=== PATIENT | male | born 1970 | race Caucasian/White ===

== ENCOUNTER 2021-01-28 11:38 | Emergency (ER) | payer OTHER, SELFPAY ==
--- NOTE | ~2021-01-28 | XR_ITS ---
EXAMINATION: XR ribs RT 2V w CXR 2V EXAM DATE: 01/28/2021 14:04 INDICATION: Cough 1week, rt. posterior rib pain, lt. chest wall pain. TECHNIQUE: Frontal projection of the upper right ribs, frontal projection of the lower right ribs, ob lique projection of the right ribs, frontal and lateral chest x-ray(s) for interpretation. Comparison is made to prior examination from 06/06/2016. FINDINGS: There are no displaced acute right rib fractures identified. There is no soft tissue abno rmality seen. There are cholecystectomy clips. No confluent consolidation, pneumothorax or pleural e ffusion suspected. Cardiomediastinal silhouette is normal. IMPRESSION: Unremarkable chest x-ray, right rib exam. Reviewed, dictated and finalized at location B. EY ENGINEER
[2021-01-28 13:00] VITALS: BP 145/80; PULSE 80; RESP 18; TEMP 37.4; O2SAT 98
--- NOTE | 2021-01-28 13:51 | ED.URI ---
HPI - URI/Sore Throat General Chief Complaint: Upper Respiratory Infection Stated Complaint: head and nasal pressure,back/chest pain Time Seen by Provider: 01/28/21 13:43 Source: patient and RN notes reviewed Mode of arrival: ambulatory Limitations: no limitations History of Present Illness HPI Narrative: Patient presents today complaining of sinus pressure x1 week. Yesterday he developed sore throat, postnasal drip, nonproductive cough with left-sided chest wall pain. He also states that he coughs so hard that it exacerbates his chronic low back pain. States that he has developed some right posterior rib pain as well due to severe coughing episodes. He has tried NyQuil, Mucinex, and nasal spray without relief. MD elicited complaint: cough and sore throat Related Data Allergies Allergy/AdvReac Type Severity Reaction Status Date / Time Penicillins Allergy Unknown Other Verified 01/28/21 13:22 Review of Systems Review of Systems: CONSTITUTIONAL: Denies body aches, fever, chills, or sweats. EYES: Denies visual changes, redness, or discharge. ENT: Denies rhinorrhea, or otalgia.+ Sinus congestion and pressure, sore throat, postnasal drip CARDIOVASCULAR: Denies chest pain, palpitations, or edema. RESPIRATORY: Denies dyspnea.+ Cough, chest wall pain GASTROINTESTINAL: Denies abdominal pain, nausea, vomiting, or diarrhea. GENITOURINARY: Denies dysuria or hematuria. SKIN: Denies rash, itching, or wounds. MUSCULOSKELETAL: Denies joint pain, or myalgia.+ Low back pain, rib pain NEUROLOGIC: Denies headache, numbness, tingling, or weakness. PSYCH: Denies depression or anxiety. [facility] Family History Family History Father Patient's father is in good health Malignant neoplasm of prostate Family history of heart disease in male family member before age 55 Social History Social History Smoking status: Never smoker Second hand tobacco smoke exposure: No Alcohol intake: current Comments At time of signature, I have reviewed and agree with nursing past medical, surgical, social and family history unless otherwise noted. Please see nursing chart for further information. There is no relevant family history pertinent to the presenting complaint Exam Narrative: GENERAL: Ill-appearing, well-nourished, and in no moderate pain distress. HEAD: Normocephalic, atraumatic. EYES: EOMI. No redness or drainage. Conjunctivae normal. ENT: Mucous membranes pink and moist. Nares congested. No rhinorrhea. TMs normal bilaterally. Throat normal. Uvula midline. NECK: Normal AROM. Supple. No lymphadenopathy. CHEST: No respiratory distress. Clear to auscultation. Mild tenderness along the left sternal border with palpation. Right lower posterior rib tenderness with palpation. No crepitus or deformity noted. HEART: Regular rate and rhythm. No murmur appreciated. Normal peripheral pulses. MUSCULOSKELETAL: No bony tenderness. Left lower lumbar paraspinal muscle tenderness. EXTREMITIES: Normal range of motion. No edema. SKIN: Warm, dry, no rash. Capillary refill normal. Normal skin turgor. NEURO: No focal deficits. Alert and oriented x3. Gait steady. PSYCH: Normal affect. No signs of depression or anxiety. Course Vital Signs Vital signs: Vital Signs Temperature 99.4 F 01/28/21 13:00 Pulse Rate 80 01/28/21 13:00 Respiratory Rate 18 01/28/21 13:00 Blood Pressure 145/80 H 01/28/21 13:00 Pulse Oximetry 98 01/28/21 13:00 Temperature 99.4 F 01/28/21 13:00 Pulse Rate 80 01/28/21 13:00 Respiratory Rate 18 01/28/21 13:00 Blood Pressure 145/80 H 01/28/21 13:00 Pulse Oximetry 98 01/28/21 13:00 Reviewed. Pt has been instructed to follow up with his PCP regarding his elevated blood pressure today. MDM - URI/Sore Throat Differential Diagnosis Differential diagnosis: Likely upper respiratory infect
== END 2021-01-28 14:30 | disposition home or self-care (01) ==
PROVIDERS: Emergency Provider Nurse Practitioner
DX: M94.0 Chondrocostal junction syndrome [Tietze] (principal); J06.9 Acute upper respiratory infection, unspecified; S29.011A Strain of muscle and tendon of front wall of thorax, initial encounter; S21.109A Unspecified open wound of unspecified front wall of thorax without penetration into thoracic cavity, initial encounter; X58.XXXA Exposure to other specified factors, initial encounter; Z20.822 Contact with and (suspected) exposure to COVID-19
CPT/HCPCS: 71046; 71100; 87426; 99213; C9803; G0463

== ENCOUNTER 2024-03-04 16:50 | Emergency (ER) | payer OTHER, SELFPAY ==
--- NOTE | ~2024-03-04 | CT_ITS ---
EXAMINATION: CT abdomen pelvis w con DATE: 03/04/2024 20:55 INDICATION: Abdominal pain, vomiting TECHNIQUE: Computed tomography (CT) of the abdomen and pelvis was performed with 100 CC Omnipaque 350 intravenous contrast. Automated exposure control and iterative reconstruction technique were employe d. Exam dose: 1510.39 mGy-cm total exam DLP. COMPARISON: 05/16/2017 CT abdomen pelvis FINDINGS: Mild bilateral dependent lower lobe atelectasis. Normal heart size. No pericardial or pleural effusion. Diffuse hepatic steatosis. No hepatic space-occupying mass lesion. Status post cholecystectomy. No bile duct or pancreatic duct dilatation. No pancreatic mass lesion or calcification. There is fatty infiltration of the pancreas. Spleen measures 14 cm sagittally consistent with splenomegaly. Normal morphology of the adrenal glands. 7 mm probable cyst of the lower pole of the right kidney the kidneys are otherwise unremarkable. No u rinary tract calculus or hydroureteronephrosis. The urinary bladder and prostate gland and seminal ve sicles are unremarkable. There is atherosclerotic calcification but normal caliber of the abdominal aorta. No intraperitoneal or retroperitoneal or pelvic mass lesion or adenopathy or ascites. The appendix is not identified. There is fluid distention of much of the small bowel but no abnormal small bowel dilatation or small or large bowel wall thickening, pneumatosis or intraperitoneal free a ir. No suspicious osteolytic or osteoblastic lesions. IMPRESSION: Nondilated fluid containing small bowel which may be due to enteritis; no bowel obstruct ion, bowel wall thickening or intraperitoneal free air The appendix is apparently surgically absent Hepatic steatosis Status post cholecystectomy 7 mm probable cyst of right kidney Reviewed, dictated and finalized at Location [facility]. Reviewed, dictated and finalized at location A. PROOFER IMPRESSION: Nondilated fluid containing small bowel which may be due to enteri tis; no bowel obstruction, bowel wall thickening or intraperitoneal free air The appendix is apparently surgically absent Hepatic steatosis Status post cholecystectomy 7 mm probable cyst of right kidney
[2024-03-04 16:53] VITALS: BP 136/74; PULSE 98; RESP 18; TEMP 36.9; O2SAT 99
[2024-03-04 18:26] LABS: Hematocrit 47.8 % (42.0-52.0); Hemoglobin 16.3 g/dL (14.0-18.0); Mean Corpuscular HGB Conc 34.1 g/dl (32-36); Mean Corpuscular Hemoglobin 30.8 pg (26-34); Mean Corpuscular Volume 90.4 fl (80-100); Mean Platelet Volume 10.8 fl (7.4-10.4); Platelet Count Result 217 k/mm3 (150-375); Red Blood Count 5.29 M/mm3 (4.6-6.20); Red Cell Distribution Width 12.3 % (11.5-14.5); White Blood Count 15.1 K/mm3 (4.5-10.0)
[2024-03-04] MEDS: SODIUM CHLORIDE 0.9% IV 1,000 ML 999 ML IV CONT (18:36)
[2024-03-04] MEDS: ONDANSETRON INJ 4 MG/2 ML VIAL IV PUSH (18:37)
[2024-03-04] MEDS: FAMOTIDINE 20 MG/2 ML VIAL IV PUSH (18:37)
[2024-03-04 18:39] LABS: Alanine Aminotransferase 43 U/L (6-50); Albumin Level 4.3 g/dL (3.5-5.1); Alkaline Phosphatase 58 U/L (38-126); Anion Gap 10 mmol/L (4-12); Aspartate Amino Transferase 37 U/L (17-59); Bilirubin,Total 0.9 mg/dL (0.2-1.3); Blood Urea Nitrogen 21 mg/dL (9-20); Calcium 8.7 mg/dL (8.4-10.2); Carbon Dioxide 24 mmol/L (22-30); Chloride 105 mmol/L (98-107); Estimated CRCL calculation 84 ml/min; Estimated Glomerular Filt Rate > 60; Glucose 191 mg/dL (65-110); Lipase 28 U/L (23-300); Potassium 4.1 mmol/L (3.4-5.0); Sodium 139 mmol/L (137-145)
[2024-03-04 18:52] LABS: Band Neutrophils Percent 3 % (0-6); Basophils Absolute Manual 0.15 K/mm3 (0.0-0.1); Basophils Percent Manual 1 % (0-1); Metamyelocytes Percent 1 %; Monocytes Absolute Manual 0.15 K/mm3 (0.1-0.90); Monocytes Percent Manual 1 % (3-9); Neutrophils Absolute Manual 14.04 K/mm3 (1.3-6.7); Neutrophils Percent Manual 90 % (46-73); Platelet Estimate Adequate (Adequate); Total Cells Counted 100
[2024-03-04 18:53] LABS: Atypical Lymphocytes Present; Giant Platelets Present; Platelet Clumps Present; Schistocytes None Seen
[2024-03-04 18:54] VITALS: BP 139/77; PULSE 89; RESP 18; O2SAT 98
--- NOTE | 2024-03-04 19:04 | ECG_ITS ---
Test Date: 2024-03-04 19:44:48 Measurements Intervals [place] Rate: 94 P: 46 DC: 138 QRS: 44 QRSD: 107 T: 49 QT: 351 QTc: 440 Interpretive Statements SINUS RHYTHM NONSPECIFIC T-WAVE ABNORMALITY No previous ECG available for comparison Electronically Signed On 03-04-2024 21:04:46 TRAFFIC COUNTER by Roland Acharya M.D.
--- NOTE | 2024-03-04 19:05 | ED.NAVMDI ---
HPI - Nausea/Vomiting/Diarrhea General Chief complaint: Nausea/Vomiting/Diarrhea Stated complaint: N/V/D Time Seen by Provider: 03/04/24 17:50 Source: patient Mode of arrival: ambulatory Limitations: no limitations History of Present Illness HPI Narrative: This is a 53-year-old male that presents to the emergency department for nausea and vomiting. Ongoing since earlier this morning. Also reports epigastric abdominal pain/chest pain. Reports some diarrhea. Denies fevers. Related Data Allergies Allergy/AdvReac Type Severity Reaction Status Date / Time Penicillins Allergy Unknown Other Verified 01/28/21 13:22 Review of Systems Review of Systems: CONSTITUTIONAL: Denies fever CARDIOVASCULAR: Reports chest pain RESPIRATORY: Denies dyspnea. GASTROINTESTINAL: Reports abdominal pain, nausea, vomiting, and diarrhea. GENITOURINARY: Denies dysuria All systems reviewed & are unremarkable except as noted in HPI and below PMFSH Past Medical History Medical History (Updated 03/04/24 @ 22:15 by Leonora Merritt PA-C) History of hypertension Family History Family History Father Patient's father is in good health Malignant neoplasm of prostate Family history of heart disease in male family member before age 55 Social History Social History Smoking status: Never smoker Second hand tobacco smoke exposure: No Alcohol intake: current Exam Narrative: GENERAL: Well-appearing, well-nourished, and in no acute distress. HEAD: Normocephalic, atraumatic. EYES: EOMI. CHEST: Clear to auscultation. No respiratory distress. No wheezes rales or rhonchi HEART: Regular rate and rhythm. No murmur heard. Normal peripheral pulses. ABDOMEN: Soft, nondistended, normal active bowel sounds. Tender to palpation in the epigastrium, without guarding EXTREMITIES: Normal range of motion. No edema. SKIN: Warm, dry, no rash. NEURO: No focal deficits. Alert and oriented x3. PSYCH: Normal mood and affect Course Course Emergency Course: Patient updated on workup and agrees with plan of care Vital Signs Vital signs: Vital Signs Temperature 98.5 F 03/04/24 16:53 Pulse Rate 98 03/04/24 16:53 Respiratory Rate 18 03/04/24 16:53 Blood Pressure 136/74 03/04/24 16:53 Pulse Oximetry 99 03/04/24 16:53 Oxygen Delivery Room Air 03/04/24 16:53 Temperature 98.5 F 03/04/24 16:53 Pulse Rate 89 03/04/24 18:54 Respiratory Rate 18 03/04/24 18:54 Blood Pressure 139/77 03/04/24 18:54 Pulse Oximetry 98 03/04/24 18:54 Oxygen Delivery Room Air 03/04/24 16:53 MDM - Nausea/Vomiting/Diarrhea MDM Narrative Medical decision making narrative: patient presents the emergency department for abdominal pain, nausea and vomiting. He is afebrile and nontoxic appearing. His vitals are stable. CBC with leukocytosis to 15.1. Metabolic panel without concerning findings. Lipase is normal. CT abdomen pelvis shows findings of enteritis. Patient hydrated given antiemetic in the ER with improvement. Tolerating p.o. intake. He was updated on his workup and agrees with plan of care. He is to follow up with her provider. He was given warnings to return to the ER Differential Diagnosis Differential diagnosis: Likely food poisoning, gastroenteritis, dehydration and other ( biliary colic, pancreatitis) Lab Data Attestation: I reviewed the patient's lab results. 03/04/24 18:12 03/04/24 18:12 Labs: Lab Results 03/04/24 Range/Units 18:12 WBC 15.1 H (4.5-10.0) K/mm3 RBC 5.29 (4.6-6.20) M/mm3 Hgb 16.3 (14.0-18.0) g/dL Hct 47.8 (42.0-52.0) % MCV 90.4 (80-100) fl MCH 30.8 (26-34) pg MCHC 34.1 (32-36) g/dl RDW 12.3 (11.5-14.5) % Plt Count 217 (150-375) k/mm3 MPV 10.8 H (7.4-10.4) fl Immature Gran % (Auto) Not Reportable Neut % (Auto) Not Reportable Lymph % (Auto) Not Reportable [place] % (Auto) Not Reportable Eos % (Auto) Not Reportable Baso % (Auto) Not Reportable Lymph # (Auto) Not Reportable [place] # (Auto) Not Reportable Eos # (Auto) Not Reportable Baso # (Auto) Not Reportable Abs Immat Gran (auto) Not Reportable Absolute Neuts (auto) Not Reportable Absolute Nucleated RBC Not Reportable Total Counted 100 Neutrophils % (Manual) 90 H (46-73) % Band Neutrophils % 3 (0-6) % Lymphocytes % (Manual) 4.0 L (18-44) % Monocytes % (Manual) 1 L (3-9) % Basophils % (Manual) 1 (0-1) % Metamyelocytes % 1 % Nucleated RBC % Not Reportable Abs Neuts (Manual) 14.04 H (1.3-6.7) K/mm3 Abs Lymphs (Manual) 0.60 L (1.1-4.5) K/mm3 Abs Monocytes (Manual) 0.15 (0.1-0.90) K/mm3 Abs Basophils (Manual) 0.15 H (0.0-0.1) K/mm3 Atypical Lymphocytes Present Platelet Estimate Adequate (Adequate) Clumped Platelets Present Giant Platelets Present Schistocytes None seen Sodium 139 (137-145) mmol/L Potassium 4.1 (3.4-5.0) mmol/L Chloride 105 (98-107) mmol/L Carbon Dioxide 24 (22-30) mmol/L Anion Gap 10 (4-12) mmol/L BUN 21 H (9-20) mg/dL Creatinine 1.10 (0.7-1.3) mg/dL Estim Creat Clear Calc 84 ml/min Estimated GFR > 60 (59 - ) Glucose 191 H (65-110) mg/dL Calcium 8.7 (8.4-10.2) mg/dL Total Bilirubin 0.9 (0.2-1.3) mg/dL AST 37 (17-59) U/L ALT 43 (6-50) U/L Alkaline Phosphatase 58 (38-126) U/L Troponin I < 0.012 (0.000-0.034) ng/mL Total Protein 8.0 (6.3-8.2) g/dL Albumin 4.3 (3.5-5.1) g/dL Lipase 28 (23-300) U/L Imaging Data Radiologist's impression: ITS Impressions Abdomen/Pelvis CT 03/04/24 20:59 IMPRESSION: Nondilated fluid containing small bowel which may be due to enteritis; no bowel obstruction, bowel wall thickening or intraperitoneal free air The appendix is apparently surgically absent Hepatic steatosis Status post cholecystectomy 7 mm probable cyst of right kidney ECG Data EKG #1: ECG completion date: 03/04/24 EKG Interpretation: normal rate, sinus rhythm, no ST changes and normal QT Critical Care Time Critical Care Time Critical Care Time: No Discharge Plan Discharge Clinical Impression: Gastroenteritis Patient Disposition: Home, Self-Care Condition: Improved Instructions: Gastroenteritis (ED) Additional Instructions: Return to the ER if you experience fever, worsening abdominal pain with nausea and vomiting, you are unable to keep down liquids or solids, blood in the stool, pain or burning with urination, blood in the urine or any other symptoms that are concerning to you Small, frequent meals. [place] diet. Remain well hydrated. Ondansetron as needed for nausea Follow up with primary care doctor Patient Language: Urdu Prescriptions: New ondansetron 4 mg tablet,disintegrating 4 mg PO Q8H PRN (Reason: nausea and vomiting) Qty: 14 0RF No Action cyclobenzaprine 10 mg tablet 10 mg PO TID PRN (Reason: muscle spasm) Qty: 20 0RF prednisone 50 mg tablet 50 mg PO DAILY 5 Days Qty: 5 0RF benzonatate 200 mg capsule 200 mg PO TID PRN (Reason: cough) Qty: 20 0RF Follow-up/Referrals: PHYSICIAN,VENETIAN BLIND ASSEMBLER [Primary Care Provider] - Ankit Lara MD [Physician] -
[2024-03-04 19:30] LABS: Troponin I < 0.012 ng/mL (0.000-0.034)
[2024-03-04] MEDS: ACETAMINOPHEN 500 MG TABLET 1000 MG PO (21:32)
[2024-03-04 22:43] VITALS: BP 127/73; PULSE 95; RESP 20; TEMP 38; O2SAT 100
== END 2024-03-04 22:55 | disposition home or self-care (01) ==
PROVIDERS: Emergency Provider Physician Assistant
DX: K52.9 Noninfective gastroenteritis and colitis, unspecified (principal); I10 Essential (primary) hypertension
CPT/HCPCS: 36415; 74177; 80053; 83690; 84484; 85025; 93005; 96361; 96374; 96375; 99284; A9270; J2405; J7030; Q9967

== ENCOUNTER 2024-07-10 22:03 | Emergency (ER) | payer OTHER, SELFPAY ==
--- NOTE | ~2024-07-10 | XR_ITS ---
EXAMINATION: XR chest 2V Exam Date/Time: 07/10/2024 22:41 CDT HISTORY: chest/abd pain R sided Comparison: 01/28/2021, 06/06/2016. RESULT: Lines, tubes, and devices: None. Lungs and pleura: Ill-defined subsegmental bibasilar opacities, likely represent scar/atelectasis, l ungs otherwise clear. Cardiomediastinal silhouette: Stable. Other: No acute osseous or upper abdominal finding. IMPRESSION: No acute cardiopulmonary process. Reviewed, dictated and finalized at location K.
--- NOTE | ~2024-07-10 | CT_ITS ---
EXAMINATION: CTA chest PE abdomen pel DATE: 07/10/2024 23:50 INDICATION: cp, sob, RUQ/R flank/rib pain, +dimer TECHNIQUE: Computed tomography angiography (CTA) of the chest was performed with 100 mL Omnipaque-350 intravenous contrast timed to evaluate the pulmonary arteries, followed by portal venous phase imagi ng of the abdomen and pelvis. Coronal maximum intensity projection 3D-reconstructions were created by the technologist. The dose-length product (DLP) was 2607.19 mGy-cm. Automated exposure control and i terative reconstruction technique were employed. COMPARISON: X-ray chest, same date; CT abdomen pelvis 03/04/2024. FINDINGS: CHEST: Lung parenchyma and airways: Clear. Pleura: Unremarkable. Thoracic inlet, axillae and chest wall: No thyroid or soft tissue mass. Mild symmetric gynecomastia. Thoracic aorta: No significant dilation. No dissection. Mediastinum: Normal. Heart and pericardium: Normal. Coronary artery calcifications: Absent. Thoracic bones: No acute osseous finding. Pulmonary arteries: Study quality: Somewhat limited by beam hardening from arm down positioning and b gregory habitus, overall diagnostic. No pulmonary emboli detected. ABDOMEN/PELVIS: Liver: Enlarged. Diffusely low-density parenchyma. Biliary/Gallbladder: Gallbladder is absent. No bile duct dilation. Pancreas: Fatty infiltration. Spleen: Enlarged. Adrenals:No mass. Kidneys: No suspicious mass, obstructing stone, or hydronephrosis. Simple right lower pole cyst. GI tract: No small or large bowel dilation. The appendix is not confidently visualized Mesentery/Peritoneum: No ascites, mass, or free air. Retroperitoneum: No mass. Mild atherosclerotic calcifications of intra-abdominal arterial vessels. Pelvis: Pelvic organs are within normal limits. Soft Tissues: Small uncomplicated fat-containing umbilical and right inguinal hernias. Abdominopelvic bones: No acute osseous finding. IMPRESSION: No CT evidence of acute pulmonary embolus. No acute process detected in the chest. Hepatosplenomegaly with hepatic steatosis. Otherwise unremarkable CT abdomen and pelvis findings. Reviewed, dictated and finalized at location K.
--- NOTE | ~2024-07-10 | CT_ITS ---
EXAMINATION: CT brain wo con DATE: 07/10/2024 23:44 INDICATION: dizziness, disorientation . TECHNIQUE: Computed tomography (CT) of the head was performed without intravenous contrast. The mA wa s adjusted according to patient size. Iterative reconstruction technique was employed. The dose-lengt h product was 681.00 mGy-cm. COMPARISON: None. FINDINGS: No acute intracranial hemorrhage or extra-axial fluid collection. No hydrocephalus, mass, or herniation. No acute ischemic infarct. Unremarkable dural venous sinus attenuation. No acute osseous abnormality. Bilateral frontal and ethmoid mucosal thickening, the remaining aerated spaces are clear. IMPRESSION: No acute intracranial process. Reviewed, dictated and finalized at location K.
--- OUTSIDE RECORDS SUMMARY | 2024-07-10 22:06 | XMS_ITS | Encounter Summary ---
Author Organization [facility] Address [address] [place] [id number] Care Team Providers Care Cell Attendant Name Role Phone None, Provider MD Primary Care Provider Unavaila ble None, Provider Primary Care Provider Unavaila ble Encounter Details Date Type Department Care Team (Late st Contact Info) Description 07/15/2023 Cursogram Message [facility] Business Office [address] [place] [id number] [place], [facility] Provider Action Needed Social History Tobacco Use Types Packs/Day Years Used Date Smoking Tobacco: Never Passive Smoke Exposure: Never Smokeless Tobacco: Never Alcohol Use Standard Drinks/Week Comments Not Currently 0 (1 standard drink = 0.6 oz pur e alcohol) PHQ-2 Answer Date Recorded Patient Health Questionnaire-2 Score 0 06/09/2023 Sex and Gender Information Value Date Recorded Sex Assigned at Not on file Legal Sex Male 12:06 PM PRINCIPAL NETWORK ENGINEER Gender Identity Male 04/17/2021 9:15 AM PRINCIPAL NETWORK ENGINEER Sexual Orientation Straight 04/17/2021 9: 15 AM PRINCIPAL NETWORK ENGINEER documented as of this encounter Plan of Treatment Not on file documented as of this encounter Visit Diagnoses Not on filedocumented in this encounter Additional Health Concerns Assessment Noted Time PHQ-9 Depression Total Score: 0 04/20/19 22 10:02 AM PRINCIPAL NETWORK ENGINEER documented as of this encounter Care Teams Cell Attendant Relationship Specialty Start Date End Date None, Provider, MD PCP - General UNKNOWN PHYSICIAN SPECIALTY 05/21/24 None, Provider, MD PCP - General UNKNOWN PHYSICIAN SPECIALTY 05/13/23 documented as of this encounter
--- OUTSIDE RECORDS SUMMARY | 2024-07-10 22:06 | XMS_ITS | Clinical Summary ---
Author Organization [facility] Address [address] [place] [address] Care Team Providers Care Apple Checker Name Role Phone None, Provider MD Primary Care Provider Unavaila ble Allergies Active Allergy Reactions Criticality Noted Date Comments Penicillins Unknown 04/20/2021 Medications omeprazole (PRILOSEC) 20 MG capsule Take 1 capsule (20 mg total) by mouth daily. Active hydroCHLOROthia zide (HYDRODIURIL) 25 MG tablet Take 1 tablet (25 mg total) by mouth every morning. 90 tablet 1 05/20/2023 Active predniSONE (DELTASONE) 20 MG tabletIndicatio ns:Acute non-recurrent frontal sinusitis,Chest wall pain One pill twice daily 5 days then one pill daily 2 day 12 tablet 06/09/2023 Active Active Problems Problem Noted Date Diagnosed Date Elevated BP without diagnosis of hypertension Assessment & Plan (05/20/2023 2:26 PM SCHOOL ADMINISTRATOR): He does not have a formal diagnosis of hypertension. Recommend hydrochlorothiazide to see if he get some symptom benefit with lower extremity edema and he may have some blood pressure effect as well. Dizziness 02/25/2023 Assessment & Plan (02/25/2023 10:00 AM SCHOOL ADMINISTRATOR): echo Bilateral lower extremity edema 01/03/2023 Assessment & Plan (05/20/2023 2:25 PM SCHOOL ADMINISTRATOR): He has some mild lower extremity edema and I have offered him hydrochlorothiazide as a diuretic given his blood pressure was elevated in the office today. Assessment & Plan (02/25/2023 10:00 AM SCHOOL ADMINISTRATOR): Venous doppler reassuring Arterial studies neg Reports numbness tingling in right lower extremity Sent note to PCP for further guidance Assessment & Plan (01/03/2023 1:02 PM CDT): Discussed getting an echo, but will await abdominal ultrasound. Bradycardia 01/03/2023 Assessment & Plan (02/25/2023 9:59 AM SCHOOL ADMINISTRATOR): EM reassuring Assessment & Plan (01/03/2023 1:03 PM CDT): Will check a Holter monitor. Chest pain in adult 01/03/2023 Assessment & Plan (05/20/2023 2:24 PM SCHOOL ADMINISTRATOR): He continues to have chest pain despite a normal stress test. I offered a CTA coronary for more definitive evaluation regarding his coronaries and for restratification with a coronary calcium score. Assessment & Plan (03/01/2023 9:15 AM SCHOOL ADMINISTRATOR): Stress echo Assessment & Plan (01/03/2023 1:03 PM CDT): Discussed exercise stress testing. Hematochezia 12/17/2022 Overview (12/17/2022): Added automatically from request for surgery [id number] Epigastric pain 12/17/2022 Overview (12/17/2022): Added automatically from request for surgery [id number] Chronic heartburn 12/17/2022 Overview (12/17/2022): Added automatically from request for surgery [id number] Irregular bowel habits 12/17/2022 Overview (12/17/2022): Added automatically from request for surgery [id number] Primary osteoarthritis of right knee 05/05/2021 Assessment & Plan (05/05/2021 7:36 PM SCHOOL ADMINISTRATOR): We discussed the risks, benefits and alternatives. The only thing proven to slow the progression of osteoarthritis is weight loss. Every pound lost relieves 4 to 6 pounds of stress across the knee. We discussed unloading braces. Formal physical therapy to help with flexibility, mobility and strength. We discussed TENS units. Nonsteroidal anti-inflammatories as well as Tylenol and pain medication and their side effects. We discussed steroid versus Visco supplement injection. We discussed eventual total knee arthroplasty. Patient has failed physical therapy, nonsteroidal anti-inflammatories, bracing and a steroid shot. Recommend MR arthrogram for further evaluation. Certainly not [id number] I would be surprised not to find a medial meniscal tear though. BMI 36.0-36.9,adult 05/05/2021 Assessment & Plan (05/20/2023 2:27 PM SCHOOL ADMINISTRATOR): He is obese with a Body mass index is 36.03 kg/m . He was educated on lifestyle modifications including diet and exercise. Assessment & Plan (05/05/2021 7:36 PM SCHOOL ADMINISTRATOR): We discussed the adverse effects of weight on osteoarthritis of the knee. For every 1 pound loss, 4 to 6 pounds of stress is relieved from the knee. We discussed low carbohydrate diet to help with weight loss. 80% of weight loss is through diet. Immunizations Immunization Administration Dates Next Due Influenza Adult (Generic) 02/19/2021 Family History Medical History Relation Comments Colon polyps Father Prostate Cancer Father Arthritis Mother Colon polyps Mother Relation Status Comments Father Alive Mother Alive Social History Tobacco Use Types Packs/Day Years [...] on file Legal Sex Male 12:06 PM SCHOOL ADMINISTRATOR Gender Identity Male 04/17/2021 9:15 AM SCHOOL ADMINISTRATOR Sexual Orientation Straight 04/17/2021 9: 15 AM SCHOOL ADMINISTRATOR Last Filed Vital Signs Vital Sign Reading Time Taken Comments Blood Pressure 123/79 06/09/2023 2:08 PM CDT Pulse 66 06/09/2023 2:08 PM CDT Temperature 36.9 C (98.5 F) 06/09/2023 2:08 PM CDT Respiratory Rate 20 06/09/2023 2:08 PM CDT Oxygen Saturation 98% 06/09/2023 2:08 PM CDT Inhaled Oxygen Concentration - - Weight 108.9 kg (240 lb) 06/09/2023 2:08 PM CDT Height 175.3 cm (5' 9 ) 06/09/2023 2:08 PM CDT Body Mass Index 35.44 06/09/2023 2:08 PM CDT Plan of Treatment Health Maintenance Due Date Last Done Comments Hepatitis C 1988 DTaP, Tdap and Td Vaccines ( 1 - Tdap) 1989 Hepatitis B Vaccines (1 of 3 - 19+ 3-dose series) 1989 Pneumococcal Vaccine: 50+ Years (1 of 1 - PCV) 2020 Zoster Vaccines (1 of 2) 2020 Annual Physical 04/20/2022 04/20/2021 COVID-19 Vaccine (4 - 2023-2 5 season) 2023 03/09/2021, 06/22/2020, 05/27/2020 PHQ-2 (Physician [place]) 03/14/2024 06/09/2023 Colorectal Cancer Screening Colonoscopy (10 Years) 02/11/2033 02/11/2023 Meningococcal B Vaccine Aged Out No l onger eligible based on patient's age to complete this topic Meningococcal Vaccine Aged Out No leanna becki eligible based on patient's age to complete this topic RSV Immunizations Under 20 Months Aged Out No longer eligible b ased on patient's age to complete this topic Insurance [facility] [place] [id number] Care Teams Apple Checker Relationship Specialty Start Date End Date None, Provider, PCP - General UNKNOWN PHYSICIAN SPECIALTY 05/21/24
--- OUTSIDE RECORDS SUMMARY | 2024-07-10 22:06 | XMS_ITS | Encounter Summary ---
Author Organization [facility] Address [address] [place] [id number] Care Team Providers Care Playback Operator Name Role Phone None, Provider Primary Care Provider Unavaila ble None, Provider Primary Care Provider Unavaila ble Encounter Details Date Type Department Care Team (Late st Contact Info) Description 11/23/2023 Virtualtwo Message [facility] Patient Accounts [address], [place] [id number] [facility] Action Needed Social History Tobacco Use [...] on file Legal Sex Male 12:06 PM BLADE WORKER Gender Identity Male 04/17/2021 9:15 AM BLADE WORKER Sexual Orientation Straight 04/17/2021 9: 15 AM BLADE WORKER documented as of this encounter Plan of Treatment Not on file documented as of this encounter Visit Diagnoses Not on filedocumented in this encounter Additional Health Concerns Assessment Noted Time PHQ-9 Depression Total Score: 0 04/20/19 22 10:02 AM BLADE WORKER documented as of this encounter Care Teams Playback Operator Relationship Specialty Start Date End Date None, Provider, MD PCP - General UNKNOWN PHYSICIAN SPECIALTY 05/21/24 None, Provider, MD PCP - General UNKNOWN PHYSICIAN SPECIALTY 05/13/23 documented as of this encounter
--- OUTSIDE RECORDS SUMMARY | 2024-07-10 22:06 | XMS_ITS | Clinical Summary ---
Author Organization [facility] Address [address] [place] [address] Care Team Providers Care Fine Craft Artist Name Role Phone Unavailable Primary Care Provider Unavailabl e Source Comments [facility],non-owned Affiliates and Associated Physician Practices is amultiple site organization consisting of ambulatory clinics and hospital sitesin [place], [place], [place] and [place]. This disclosure is being madepursuant to the Care Everywhere program and may not contain all information available regarding this patient. 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 Gender Identity Not on file Sexual Orientation Not on file Plan of Treatment Health Maintenance Due Date Last Done Comments COLOGUARD (AGES 45-75) - COL ON CA SCREENING 1970 COLON MONITORING 1970 COLONOSCOPY - COLON CA SCREENING 1970 CT COLONOGRAPHY - COLON CA SCREENING 1970 Colorectal Cancer Screening 1970 FIT - COLON CA SCREENING 1970 FLEX SIG - COLON CA SCREENING 1970 LIPID TESTING 1970 HIV SCREENING 1985 HEPATITIS C SCREENING 09/02/1988 DTAP/TDAP/TD VACCINES (1 - Tdap) 1989 HEPATITIS B VACCINE (1 of 3 - 19+ 3-dose series) 1989 PNEUMOCOCCAL VACCINE 50+ (1 of 1 - PCV) 2020 ZOSTER VACCINE (1 of 2) 2020 COVID-19 VACCINE (1 - 2023-2 5 season) 2023 DEPRESSION SCREENING 03/14/2024 INFLUENZA VACCINE (Season Ended) 2024 HIB VACCINE Aged Out No longer eligi ble based on patient's age to complete this topic HPV VACCINE Aged Out No longer eligi ble based on patient's age to complete this topic MENINGOCOCCAL (Group B) VACC INE SHARED DECISION-MAKING Aged Out No longer eligibl e based on patient's age to complete this topic MENINGOCOCCAL GROUPS A/C/Y/W VACCINE Aged Out No longer eligible b ased on patient's age to complete this topic
[2024-07-10 22:13] VITALS: BP 182/97; PULSE 89; RESP 18; TEMP 36.9
--- NOTE | 2024-07-10 22:21 | ECG_ITS ---
Test Date: 2024-07-10 22:34:27 Measurements Intervals [place] Rate: 88 P: 53 [place]: 137 QRS: 32 QRSD: 105 T: 68 QT: 363 QTc: 439 Interpretive Statements SINUS RHYTHM MINIMAL Q WAVES- INFERIOR LEADS BASELINE WANDER- V4 BORDERLINE ECG Compared to ECG 03/04/2024 19:44:48 No significant changes Electronically Signed On 07-11-2024 06:04:46 CDT by Good Martin D.O.
--- NOTE | 2024-07-10 22:22 | ED_ITS ---
HPI - General Adult General Chief complaint: Unspecified Stated complaint: Feeling disoriented,, blood in stool-Side pain Time Seen by Provider: 07/10/24 22:22 Source: patient Mode of arrival: ambulatory Limitations: no limitations History of Present Illness HPI narrative: Patient is a 53 y/o male who presents to the ED with multiple complaints. Patient reports over the past several months, he has been having pain throughout his right upper abdomen, right lateral abdomen, right flank region. He states the pain is present almost constantly, worse with eating. He reports early satiety and bloating with eating. Has been taking Tylenol and ibuprofen for the pain without much improvement. Has not contacted his doctor for this. Also reports having shortness of breath intermittently over the past few months. Reports having episode of chest tightness today. Reports feeling lightheaded and disoriented today while at work. States he has had intermittent episodes of lightheadedness over the past several months, but this was worse today. Reports intermittent headaches. Denies current headache. Also reports episode of bright red rectal bleeding 2 days ago. States he typically has some component of blood with bowel movements for the past several years, particularly with wiping. He had an increased amount 2 days ago, but has not had any further since. He is not on any anticoagulation. Denies diarrhea. Denies N/V, fevers, cough, cold sx's. Related Data Allergies Allergy/AdvReac Type Severity Reaction Status Date / Time Penicillins Allergy Unknown Other Verified 07/10/24 22:04 Review of Systems 2 Review of Systems: All systems reviewed & are unremarkable except as noted in HPI. All systems reviewed & are unremarkable except as noted in HPI and below [facility] Past Medical History Medical History History of hypertension Family History Family History Father Patient's father is in good health Malignant neoplasm of prostate Family history of heart disease in male family member before age 55 Social History Social History Smoking status: Never smoker Second hand tobacco smoke exposure: No Alcohol intake: current Exam 2 Narrative: GENERAL: Appears older than stated age, obese with BMI of 35.2, non-toxic, in no acute distress. HEAD: Normocephalic, atraumatic. EYES: PERRL/EOMI, conjunctiva clear RESPIRATORY: Airway patent, respirations nonlabored. Clear to auscultation bilaterally, no rales, rhonchi, wheezing. No focal lung sounds. CARDIOVASCULAR: Regular rate and rhythm without murmurs, rubs, or gallops. ABDOMINAL: Soft, mild diffuse tenderness, more focal tenderness in right upper abdomen, epigastric region. Nondistended. Normoactive BS. MUSCULOSKELETAL: Moves all extremities. No gross deformities. No peripheral edema. No calf tenderness. SKIN: Warm, dry, normal color. NEURO: A&O X3. Speech clear. Cranial nerves II-XII grossly intact. Steady gait. No ataxic movements. Strength 5 of 5 in upper and lower extremities bilaterally. 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 No pronator drift. [id number] testing intact. No focal deficits. PSYCHIATRIC: Appropriate mood and affect. Normal interaction. Course Vital Signs Vital signs: Vital Signs Temperature 98.5 F 07/10/24 22:13 Pulse Rate 89 07/10/24 22:13 Respiratory Rate 18 07/10/24 22:13 Blood Pressure 182/97 H 07/10/24 22:13 Temperature 98.5 F 07/10/24 22:13 Pulse Rate 72 07/11/24 02:01 Respiratory Rate 18 07/11/24 02:01 Blood Pressure 138/83 07/11/24 02:01 Pulse Oximetry 99 07/11/24 02:01 Medical Decision Making [facility] Narrative Medical decision making narrative: Patient presented to ED with multiple complaints, dizziness, lightheadedness, disorientation, chest tightness, shortness breath, right-sided abdominal and flank pain, rectal bleeding. Sx's all ongoing over past several months. Vital signs are stable upon arrival and patient in no acute distress. Very mildly hypertensive. This improved w/o intervention. Patient neurologically intact upon my exam. No focal deficits. CT brain negative. CBC with white blood cell count of 16.6. Patient did have a similar leukocytosis and Ari of last year. Denying fevers or infectious sx's. H&H is stable, consistent with previous records. He is not on any anticoagulation. Reports rectal bleeding has been ongoing for quite some time. Has previously been evaluated for this. CMP is unremarkable. Stable electrolytes. Stable kidney function. Blood glucose 132. Normal LFTs and lipase. EKG with sinus rhythm, some nonspecific ST changes. Baseline troponin 0.014. Will continue to trend. Chest x-ray was clear. D-dimer did result elevated. CTA of chest with abdomen/pelvis was obtained and unremarkable. No evidence of pulmonary embolism or other cardiopulmonary abnormality. Hepatic steatosis with hepatomegaly. 3 hour troponin also within normal range. Low suspicion for ACS. HEART score =2 Discussed lab and imaging findings, overall reassuring workup with patient. Discussed possibility of acid reflux causing R sided abdominal pain and bloating. Will start patient on a PPI. Discussed possibility of hemorrhoids causing bleeding. Will refer to GI. Patient declined rectal exam in the ED. Patient reports he has had a colonoscopy few years ago due to bleeding. He reports this was normal at that time. Recommended continued follow-up with GI and PCP for further evaluation. Feel patient is otherwise safe for D/C home. Discussed strict return precautions should symptoms worsen or continue. He agrees with plan, feels comfortable going home. Discharged in stable condition. Medical Records Medical records reviewed: Yes I reviewed the external patient's medical records. Vital Signs Vital Signs: Vital Signs Temperature 98.5 F 07/10/24 22:13 Pulse Rate 89 07/10/24 22:13 Respiratory Rate 18 07/10/24 22:13 Blood Pressure 182/97 H 07/10/24 22:13 Temperature 98.5 F 07/10/24 22:13 Pulse Rate 72 07/11/24 02:01 Respiratory Rate 18 07/11/24 02:01 Blood Pressure 138/83 07/11/24 02:01 Pulse Oximetry 99 07/11/24 02:01 Lab Data Lab results reviewed: Yes I reviewed the patient's lab results. 07/10/24 22:43 07/10/24 22:43 Labs: Lab Results 07/10/24 07/10/24 07/11/24 Range/Units 22:43 22:43 01:47 WBC 16.6 H (4.5-10.0) K/mm3 RBC 4.95 (4.6-6.20) M/mm3 Hgb 15.2 (14.0-18.0) g/dL Hct 44.7 (42.0-52.0) % MCV 90.3 (80-100) fl MCH 30.7 (26-34) pg MCHC 34.0 (32-36) g/dl RDW 12.3 (11.5-14.5) % Plt Count 199 (150-375) k/mm3 MPV 10.7 H (7.4-10.4) fl Immature Gran % (Auto) 0.5 (0-0.5) % Neut % (Auto) 77.9 H (45.5-73.1) % Lymph % (Auto) 11.8 L (18.3-44.2) % [place] % (Auto) 8.4 (2.6-8.5) % Eos % (Auto) 1.1 (0-4.4) % Baso % (Auto) 0.3 (0.2-1.2) % Lymph # (Auto) 1.96 (0.9-3.2) K/mm3 [place] # (Auto) 1.4 H (0.1-0.6) K/mm3 Eos # (Auto) 0.2 (0-0.3) K/mm3 Baso # (Auto) 0.1 (0.0-0.1) K/mm3 Abs Immat Gran (auto) 0.08 H (0.00-0.031) K/mm3 Absolute Neuts (auto) 12.9 H (1.3-6.7) K/mm3 Absolute Nucleated RBC 0.000 (0.0-0.012) K/mm3 Nucleated RBC % 0.0 (0.0-0.2) % PT 13.2 (11.1-14.7) Seconds INR 1.0 APTT 27.5 (22.3-36.8) Seconds D-Dimer 0.70 H Cancelled (<0.48) ug/mL Sodium 138 (137-145) mmol/L Potassium 3.9 (3.4-5.0) mmol/L Chloride 103 (98-107) mmol/L Carbon Dioxide 24 (22-30) mmol/L Anion Gap 11 (4-12) mmol/L BUN 16 (9-20) mg/dL Creatinine 0.79 (0.7-1.3) mg/dL Estim Creat Clear Calc 118 ml/min Estimated GFR > 60 (59 - ) Glucose 132 H (65-110) mg/dL Calcium 8.9 (8.4-10.2) mg/dL Total Bilirubin 0.8 (0.2-1.3) mg/dL AST 37 (17-59) U/L ALT 50 (6-50) U/L Alkaline Phosphatase 63 (38-126) U/L Troponin I 0.014 0.015 (0.000-0.034) ng/mL Total Protein 8.0 (6.3-8.2) g/dL Albumin 4.3 (3.5-5.1) g/dL Lipase 43 (23-300) U/L Imaging Data Attestation: I personally reviewed and interpreted this imaging study as follows: Radiologist's impression: ITS Impressions Chest X-Ray 07/10/24 23:28 IMPRESSION: No acute cardiopulmonary process. Head CT 07/11/24 00:03 IMPRESSION: No acute intracranial process. Chest/Abdomen/Pelvis CTA 07/11/24 01:03 IMPRESSION: No CT evidence of acute pulmonary embolus. No acute process detected in the chest. Hepatosplenomegaly with hepatic steatosis. Otherwise unremarkable CT abdomen and pelvis findings. ECG Data EKG #1: Attestation: I personally reviewed and interpreted this ECG as follows: ECG completion date: 07/11/24 ECG completion time: 22:34 EKG Interpretation: normal rate (88), sinus rhythm and no ST changes Discharge Plan Discharge Clinical Impression: Chest tightness, Bright red rectal bleeding, Lightheadedness, Right sided abdominal pain Patient Disposition: Home Condition: Stable Instructions: Antibiotic Form, Chest Pain (ED), Rectal Bleeding (ED), Diet for Stomach Ulcers and Gastritis (ED), Gas and Bloating (ED), Abdominal Pain (ED), Lightheadedness (ED) Additional Instructions: Your workup here was reassuring. Recommend trialing pantoprazole daily for acid reflux/gastritis symptoms. Recommend follow-up with primary care doctor and GI for further evaluation. Call offices to make appointments. Return to ED if you experience new or worsening concerns, worsening bleeding, passing out, severe dizziness, worsening chest pain, difficulty breathing, or any other symptoms of concern. Patient Language: Lao Prescriptions: New pantoprazole [Protonix] 20 mg tablet,delayed release (DR/EC) 20 mg PO HS 42 Days Qty: 42 0RF No Action cyclobenzaprine 10 mg tablet 10 mg PO TID PRN (Reason: muscle spasm) Qty: 20 0RF prednisone 50 mg tablet 50 mg PO DAILY 5 Days Qty: 5 0RF benzonatate 200 mg capsule 200 mg PO TID PRN (Reason: cough) Qty: 20 0RF ondansetron 4 mg tablet,disintegrating 4 mg PO Q8H PRN (Reason: nausea and vomiting) Qty: 14 0RF Follow-up/Referrals: PHYSICIAN,INSURANCE CLAIM AUDITOR [Primary Care Provider] - Tye Johnson MD [Physician] - (GI) Ankit Lara MD [Physician] - (PRIMARY CARE) Time of Disposition: 02:02 Quality HEART score for chest pain patients History: slightly suspicious ECG: normal Age: > 45 and < 65 years Risk factors: 1 or 2 risk factors Troponin: < or = to 1x normal limit Heart score: 2
--- OUTSIDE RECORDS SUMMARY | 2024-07-10 22:28 | XMS_ITS | Encounter Summary ---
Author Organization 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 Gender Identity Male 04/17/2021 9:15 AM HOTEL OPERATIONS MANAGER Sexual Orientation Straight 04/17/2021 9: 15 AM HOTEL OPERATIONS MANAGER documented as of this encounter Plan of Treatment Not on file documented as of this encounter Visit Diagnoses Not on filedocumented in this encounter Additional Health Concerns Assessment Noted Time PHQ-9 Depression Total Score: 0 04/20/19 22 10:02 AM HOTEL OPERATIONS MANAGER documented as of this encounter Care Teams Optical Assistant Relationship Specialty Start Date End Date None, Provider, MD PCP - General UNKNOWN PHYSICIAN SPECIALTY 05/21/24 None, Provider, MD PCP - General UNKNOWN PHYSICIAN SPECIALTY 05/13/23 documented as of this encounter
--- OUTSIDE RECORDS SUMMARY | 2024-07-10 22:28 | XMS_ITS | Clinical Summary ---
Author Organization [facility] Address [address] [place] [address] Care Team Providers Care Design Coordinator Name Role Phone Unavailable Primary Care Provider Unavailabl e Source Comments [facility],non-owned Affiliates and Associated Physician Practices is amultiple site organization consisting of ambulatory clinics and hospital sitesin [place], [place], [place] and [place]. This disclosure is being madepursuant to the Care Everywhere program and may not contain all information available regarding this patient. 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
--- OUTSIDE RECORDS SUMMARY | 2024-07-10 22:28 | XMS_ITS | Clinical Summary ---
Author Organization [facility] Address [address] [place] [address] Care Team Providers Care Change Management Name Role Phone None, Provider MD Primary [...] hypertension Assessment & Plan (05/20/2023 2:26 PM NOTE TELLER): He does not have a formal diagnosis of hypertension. Recommend hydrochlorothiazide to see if he get some symptom benefit with lower extremity edema and he may have some blood pressure effect as well. Dizziness 02/25/2023 Assessment & Plan (02/25/2023 10:00 AM NOTE TELLER): echo Bilateral lower extremity edema 01/03/2023 Assessment & Plan (05/20/2023 2:25 PM NOTE TELLER): He has some mild lower extremity edema and I have offered him hydrochlorothiazide as a diuretic given his blood pressure was elevated in the office today. Assessment & Plan (02/25/2023 10:00 AM NOTE TELLER): Venous doppler reassuring Arterial studies neg Reports numbness tingling in right lower extremity Sent note to PCP for further guidance Assessment & Plan (01/03/2023 1:02 PM CDT): Discussed getting an echo, but will await abdominal ultrasound. Bradycardia 01/03/2023 Assessment & Plan (02/25/2023 9:59 AM NOTE TELLER): EM reassuring Assessment & Plan (01/03/2023 1:03 PM CDT): Will check a Holter monitor. Chest pain in adult 01/03/2023 Assessment & Plan (05/20/2023 2:24 PM NOTE TELLER): He continues to have chest pain despite a normal stress test. I offered a CTA coronary for more definitive evaluation regarding his coronaries and for restratification with a coronary calcium score. Assessment & Plan (03/01/2023 9:15 AM NOTE TELLER): Stress echo Assessment & Plan (01/03/2023 1:03 PM CDT): Discussed exercise stress testing. Hematochezia 12/17/2022 Overview (12/17/2022): Added automatically from request for surgery [id number] Epigastric pain 12/17/2022 Overview (12/17/2022): Added automatically from request for surgery [id number] Chronic heartburn 12/17/2022 Overview (12/17/2022): Added automatically from request for surgery [id number] Irregular bowel habits 12/17/2022 Overview (12/17/2022): Added automatically from request for surgery [id number] Primary osteoarthritis of right knee 05/05/2021 Assessment & Plan (05/05/2021 7:36 PM NOTE TELLER): We discussed the risks, benefits and alternatives. [...] MR arthrogram for further evaluation. Certainly not [id number] I would be surprised not to find a medial meniscal tear though. BMI 36.0-36.9,adult 05/05/2021 Assessment & Plan (05/20/2023 2:27 PM NOTE TELLER): He is obese with a Body mass index is 36.03 kg/m . He was educated on lifestyle modifications including diet and exercise. Assessment & Plan (05/05/2021 7:36 PM NOTE TELLER): We discussed the adverse effects of weight [...] on file Legal Sex Male 12:06 PM NOTE TELLER Gender Identity Male 04/17/2021 9:15 AM NOTE TELLER Sexual Orientation Straight 04/17/2021 9: 15 AM NOTE TELLER Last Filed Vital Signs Vital Sign Reading [...] season) 2023 03/09/2021, 06/22/2020, 05/27/2020 PHQ-2 (Physician [place]) 03/14/2024 06/09/2023 Colorectal Cancer Screening Colonoscopy (10 Years) 02/11/2033 02/11/2023 Meningococcal B Vaccine Aged Out No l onger eligible based on patient's age to complete this topic Meningococcal Vaccine Aged Out No leanna becki eligible based on patient's age to complete this topic RSV Immunizations Under 20 Months Aged Out No longer eligible b ased on patient's age to complete this topic Insurance [facility] Care Teams Change Management Relationship Specialty Start Date End Date None, Provider, PCP - General UNKNOWN PHYSICIAN SPECIALTY 05/21/24
--- OUTSIDE RECORDS SUMMARY | 2024-07-10 22:28 | XMS_ITS | Encounter Summary ---
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 Gender Identity Male 04/17/2021 9:15 AM GROUP LEADER WAFER POLISHING Sexual Orientation Straight 04/17/2021 9: 15 AM GROUP LEADER WAFER POLISHING documented as of this encounter Plan of Treatment Not on file documented as of this encounter Visit Diagnoses Not on filedocumented in this encounter Additional Health Concerns Assessment Noted Time PHQ-9 Depression Total Score: 0 04/20/19 22 10:02 AM GROUP LEADER WAFER POLISHING documented as of this encounter Care Teams Aluminum Siding Mechanic Relationship Specialty Start Date End Date None, Provider, MD PCP - General UNKNOWN PHYSICIAN SPECIALTY 05/21/24 None, Provider, MD PCP - General UNKNOWN PHYSICIAN SPECIALTY 05/13/23 documented as of this encounter
[2024-07-10 22:51] LABS: Basophils Absolute Auto 0.1 K/mm3 (0.0-0.1); Basophils Percent Auto 0.3 % (0.2-1.2); Eosinophils Absolute Auto 0.2 K/mm3 (0-0.3); Eosinophils Percent Auto 1.1 % (0-4.4); Hematocrit 44.7 % (42.0-52.0); Hemoglobin 15.2 g/dL (14.0-18.0); Immature Granulocyte Absolute 0.08 K/mm3 (0.00-0.031); Immature Granulocyte Percent A 0.5 % (0-0.5); Lymphocytes Absolute Auto 1.96 K/mm3 (0.9-3.2); Lymphocytes Percent Auto 11.8 % (18.3-44.2); Mean Corpuscular Hemoglobin 30.7 pg (26-34); Mean Corpuscular Volume 90.3 fl (80-100); Mean Platelet Volume 10.7 fl (7.4-10.4); Monocytes Absolute Auto 1.4 K/mm3 (0.1-0.6); Monocytes Percent Auto 8.4 % (2.6-8.5); Neutrophils Absolute Auto 12.9 K/mm3 (1.3-6.7); Neutrophils Percent Auto 77.9 % (45.5-73.1); Platelet Count Result 199 k/mm3 (150-375); Red Blood Count 4.95 M/mm3 (4.6-6.20); Red Cell Distribution Width 12.3 % (11.5-14.5); White Blood Count 16.6 K/mm3 (4.5-10.0)
[2024-07-10 23:01] LABS: Alanine Aminotransferase 50 U/L (6-50); Albumin Level 4.3 g/dL (3.5-5.1); Alkaline Phosphatase 63 U/L (38-126); Anion Gap 11 mmol/L (4-12); Aspartate Amino Transferase 37 U/L (17-59); Bilirubin,Total 0.8 mg/dL (0.2-1.3); Blood Urea Nitrogen 16 mg/dL (9-20); Calcium 8.9 mg/dL (8.4-10.2); Carbon Dioxide 24 mmol/L (22-30); Chloride 103 mmol/L (98-107); Estimated CRCL calculation 118 ml/min; Estimated Glomerular Filt Rate > 60; Glucose 132 mg/dL (65-110); Lipase 43 U/L (23-300); Potassium 3.9 mmol/L (3.4-5.0); Sodium 138 mmol/L (137-145)
[2024-07-10 23:03] LABS: Partial Thromboplastin Time 27.5 Seconds (22.3-36.8); Prothrombin Time 13.2 Seconds (11.1-14.7)
[2024-07-10 23:12] LABS: Troponin I 0.014 ng/mL (0.000-0.034)
[2024-07-10 23:19] VITALS: BP 171/93; PULSE 76; RESP 19; O2SAT 98
[2024-07-11] MEDS: PANTOPRAZOLE SODIUM IV 40 MG VIAL IV PUSH (00:07)
--- NOTE | 2024-07-11 01:44 | ECG_ITS ---
Test Date: 2024-07-11 01:52:30 Measurements Intervals [place] Rate: 73 P: 57 [place]: 142 QRS: 46 QRSD: 104 T: 86 QT: 383 QTc: 424 Interpretive Statements SINUS RHYTHM MINIMAL Q WAVES- INFERIOR LEADS BORDERLINE ST-T WAVE ABNORMALITY- HIGH LATERAL LEADS BASELINE ARTIFACT- V4 BORDERLINE ECG Compared to ECG 07/10/2024 22:34:27 No significant changes Electronically Signed On 07-11-2024 06:08:46 CDT by Good Martin D.O.
[2024-07-11 02:01] VITALS: BP 138/83; PULSE 72; RESP 18; O2SAT 99
[2024-07-11 02:15] LABS: Troponin I 0.015 ng/mL (0.000-0.034)
== END 2024-07-11 02:55 | disposition home or self-care (01) ==
PROVIDERS: Student in an Organized Health Care Education/Training Program; Emergency Provider Physician Assistant
DX: R07.9 Chest pain, unspecified (principal); K62.5 Hemorrhage of anus and rectum; R42 Dizziness and giddiness; R10.9 Unspecified abdominal pain; I10 Essential (primary) hypertension
CPT/HCPCS: 36415; 70450; 71046; 71275; 74177; 80053; 83690; 84484; 85025; 85380; 85610; 85730; 93005; 96374; 99284; J2470; Q9967